=== PATIENT | male | born 1940 | race Caucasian/White ===

== ENCOUNTER 2018-09-14 11:55 | Day surgery (SDC) | payer BC, MEDICARE, OTHER ==
[2018-09-13 18:36] VITALS: Ht 134.6 cm; Wt 50.9 kg
[~2018-09-14] VITALS: Ht 134.6 cm; Wt 50.9 kg
[2018-09-14] VITALS (9 sets, daily range): BP systolic 96–118; BP diastolic 51–64; PULSE 96–106; RESP 22–29
[2018-09-14] MEDS ORDERED: MYCO200S GTB (13:35)
[2018-09-14] MEDS ORDERED: FLUO30CR TP (13:37)
[2018-09-14] MEDS ORDERED: ACET325S GTB (13:38)
[2018-09-14] MEDS ORDERED: ACET100V3 INHALATION (13:41)
[2018-09-14] MEDS ORDERED: IPRA3AMP29 INHALATION (13:42)
[2018-09-14] MEDS ORDERED: ATOV750L GTB (13:43)
[2018-09-14] MEDS ORDERED: BUSP5TAB2 GTB (13:44)
[2018-09-14] MEDS ORDERED: CHLO473M4 MM (13:45)
[2018-09-14] MEDS ORDERED: CACARBS GTB (13:47)
[2018-09-14] MEDS ORDERED: CHOL400T10 GTB (13:49)
[2018-09-14] MEDS ORDERED: CHLO25TA2 GTB (13:49)
[2018-09-14] MEDS ORDERED: QUESTRAN GTB (13:52)
[2018-09-14] MEDS ORDERED: GLUC1VIA6 IJ (14:01)
[2018-09-14] MEDS ORDERED: GUAI-173 GTB (14:06)
[2018-09-14] MEDS ORDERED: HEPA500021 IJ (14:07)
[2018-09-14] MEDS ORDERED: MELA5TAB4 GTB (14:07)
[2018-09-14] MEDS ORDERED: LEVO175T6 GTB (14:08)
[2018-09-14] MEDS ORDERED: LANT3I SC (14:09)
[2018-09-14] MEDS ORDERED: NOVO3I SC (14:14)
[2018-09-14] MEDS ORDERED: MICO57CR2 TP (14:16)
[2018-09-14] MEDS ORDERED: NYST1000 GTB (14:17)
[2018-09-14] MEDS ORDERED: VALC450 GTB (14:21)
[2018-09-14] MEDS ORDERED: PRED10TA GTB (14:24)
[2018-09-14] MEDS ORDERED: TACR1CAP GTB (14:27)
[2018-09-14] MEDS ORDERED: TOBR300A5 INHALATION (14:28)
--- NOTE | 2018-09-14 16:19 | PREAC ---
Date/Time of Note Date/Time of Note DATE: 09/14/18 TIME: 16:17 Anesthesia Eval and Record Evaluation Time Pre-Procedure Interview DATE: 09/14/18 TIME: 16:17 Age 77 Sex male NPO: 8 hrs Preoperative diagnosis DYSPHAGIA, Planned procedure EGD WITH GASTROSTOMY TUBE INSERTION Past Medical History Past Medical History: Includes Cardio: HTN Endo: Diabetes Pulm: Other (PULMONARY FIBROSIS, RT LUNG TRANSPLANT, VENT DEPENDENT) Heme: Anemia Psych: Depression Surgery & Anesthesia Issues No known issue Meds Anticoagulation: No Beta Flo within 24 hr: No Reason Beta Flo not given: Pt. not on B-Flo Reported Medications Tobramycin Neb* (Tobramycin Neb*) 300 Mg/5 Ml Ampul.neb, 80 MG INHALATION Q8H, #60 AMP 09/14/18 Tacrolimus* (Tacrolimus*) 1 Mg Capsule, 2 MG GTB Q12 PRN for QAM, CAP 09/14/18 Prednisone* (Prednisone*) 10 Mg Tab, 10 MG GTB DAILY, TAB 09/14/18 valGANciclovir* (Valcyte*) 450 Mg Tablet, 900 MG GTB Q2D, TAB Q 9AM 09/14/18 Nystatin (Nystatin) 100,000 Unit/1 Ml Oral.susp, 5 ML GTB Q6H, #60 ML 09/14/18 Miconazole Nitrate (Melissa Antifungal) 57 Gm Cream.gm., 57 GM TP NEEDED, TUB 09/14/18 Insulin Aspart* (Novolog Insulin Pen*) 100 Unit/Ml Soln, 0 SC .SLIDING SCALE AC, EA IF BS 71-130=0 UNIT,131-150=1 UNIT,151-200=2 UNITS,201-250=4 UNITS,251-300=6 UNITS,301-350=8 UNITS,351-400=10 UNITS ABOVE 400=12 UNITS AND CALL MD. 09/14/18 Insulin Glargine* (Lantus*) 100 Unit/Ml Soln, 7 UNIT SC BID, #1 VIAL 09/14/18 Levothyroxine Sodium* (Levothyroxine Sodium*) 175 Mcg Tablet, 175 MCG GTB BEFORE BREAKFAST, #30 TAB 09/14/18 Melatonin (Melatonin) 5 Mg Tablet, 5 MG GTB HS, TAB 09/14/18 Heparin Sodium,Porcine/Pf (HEPARIN SOD 5,000 UNIT/ 0.5 ML) 5,000 Unit/0.5 Ml Vial, 5000 UNIT IJ Q8H, VIAL 09/14/18 Guaifenesin* (Tussin*) 100 Mg/5 Ml Syrup, 15 ML GTB Q6 PRN for COUGH, ML 09/14/18 Glucagon HCl (Glucagon HCl) 1 Mg Vial, 1 MG IJ NEEDED, VIAL FOR BLOOD GLUCOSE BELOW 70 09/14/18 Cholestyramine* (Questran*) 1 Pkt Susp, 4 GM GTB Q 11AM, PACKET DO NOT GIVE WITHIN 2HRS OF OTHER MEDS 09/14/18 Cholecalciferol* (Vitamin D*) 400 Unit Tablet, 400 UNIT GTB DAILY, TAB 09/14/18 Chlorthalidone* (Chlorthalidone*) 25 Mg Tablet, 50 MG GTB BID, TAB 09/14/18 Calcium Carbonate (Ca Carbonate Susp (PEDIATRIC)) 250 Mg/Ml Susp, 1250 MG GTB DAILY for 30 Days, BOTTLE 09/14/18 Chlorhexidine Gluconate (Peridex) 473 Ml Mouthwash, 15 ML MM Q12H, BOTTLE 09/14/18 Buspirone Hcl* (Buspirone Hcl*) 5 Mg Tab, 5 MG GTB BID, TAB 09/14/18 Atovaquone* (Mepron*) 750 Mg/5 Ml Oral.susp, 1500 MG GTB DAILY 09/14/18 Ipratropium-Albuterol (Ipratropium-Albuterol) 0.5-3 Mg/3 Ml Ampul.neb, 3 ML I NHALATION QID, #30 VIAL 09/14/18 Acetylcysteine (Acetylcysteine) 100 Mg/1 Ml Vial, 2 ML INHALATION QID, VIAL 09/14/18 Acetaminophen* (Acetaminophen* Susp) 325 Mg/10.15 Ml Solution, 20.3 ML GTB Q6H PRN for NEEDED, ML 09/14/18 Fluorouracil (Fluorouracil) 30 Gm Cream..g., 30 GM TP BID 09/14/18 Mycophenolate Mofetil* (Cellcept*) 200 Mg/Ml Susp.recon, 1.25 ML GTB DAILY, ML 09/14/18 Meds reviewed: Yes Allergies Coded Allergies: magnesium sulfate (Unverified Allergy, Unknown, 09/14/18) olanzapine (Verified Allergy, Unknown, 09/14/18) Allergies Reviewed: Yes Labs/Studies Labs Reviewed: Reviewed by anesthesiologist test: N/A Pre-procedure Exam Airway: Adequate mouth opening, Adequate thyromental dist Mallampati: Mallampati III Teeth: Normal Lung: Normal Heart: Normal ASA Physical Status ASA physical status: 3 Emergency: None Planned Anesthetic General/MAC: ETT Planned Pain Management Parenteral pain med Pre-operative Attestations Prior to commencing anesthesia and surgery, the patient was re-evaluated, there was verification of: *The patient's identity *The results of appropriate recent lab work and preoperative vital signs *The above evaluation not changing prior to induction *Anesthetic plan, risk benefits, alternative and complications discussed with patient/family; questions answered; patient/family understands, accepts and wishes to proceed. CORY ANDRES September 14, 2018 16:19
--- NOTE | 2018-09-14 17:48 | HPN ---
Date/Time of Note Date/Time of Note DATE: 09/14/18 TIME: 17:48 Interval H&P Admission Note Pt. seen H&P reviewed: No system changes KENY SORIA MD September 14, 2018 17:48
--- NOTE | 2018-09-14 18:06 | PAC ---
Date/Time of Note Date/Time of Note DATE: 09/14/18 TIME: 18:06 Post-Anesthesia Notes Post-Anesthesia Note Last documented vital signs TEMP 98.1 BP 110/71 o2 SAT 99% P 104 Activity: WNL Respiratory function: WNL Cardiovascular function: WNL Mental status: Baseline Pain reasonably controlled: Yes Hydration appropriate: Yes Nausea/Vomiting absent: Yes CORY ANDRES September 14, 2018 18:06
[2018-09-14] MEDS ORDERED: ALBUTEROL 0.083% (NEB) 2.5 MG/3 ML AMP HHN PRN (18:30)
[2018-09-14] MEDS ORDERED: hydrALAzine 20 MG INJ IV PRN (18:30)
[2018-09-14] MEDS ORDERED: MIDAZOLAM 1 MG/ML 2 ML INJ IV PRN (18:30)
[2018-09-14] MEDS ORDERED: DIPHENHYDRAMINE 50 MG INJ IV PRN (18:30)
[2018-09-14] MEDS ORDERED: FENTAnyl 50 MCG/ML VIAL IV PRN ×2 (18:30)
[2018-09-14] MEDS ORDERED: EPHEDrine 25 MG/5 ML SYG IV PRN (18:30)
[2018-09-14] MEDS ORDERED: LABETALOL HCL 20MG INJ IV PRN (18:30)
--- NOTE | 2018-09-15 03:34 | GILP ---
DATE OF PROCEDURE: 09/14/2018 PROCEDURE PERFORMED: Removal of the old G-tube and placement of new G-tube and then J-tube load out supervisor through the same gastrocutaneous fistula. INDICATION: The patient is a 77-year-old male who had a GJ tube which was clogged. The G-tube, prob ably was not in the jejunum. It was in the stomach since the residual was very high each time when w e measured it. Besides, the patient had a coffee-ground colored emesis through the G-tube, so the pu rpose is to evaluate the upper GI tract, find the source of bleeding and also place the new GJ tube. The risk of the procedure, related and unrelated complications, anesthetic risks, alternatives were discussed. Informed consent was obtained. DESCRIPTION OF PROCEDURE: The patient was brought to OR room #[address] Rain. After optimal sedation, scope was passed with much ease into esophagus and advanced further down into stomach. The esophageal mucosa revealed erosive esophagitis with superficial ulceration and also there was retrog rade flow of gastric content all the way into the mid portion of the esophagus to the proximal part o f the esophagus. The G-tube was identified through the external opening of . Guidewire was pas sed through the G-tube. Guidewire was snared and transendoscopically passed the snare and the G-tube of 20-[place] loop was attached to the tip of the wire and the whole procedure was completed by mary Jason technique. The old G-tube was removed and the new G-tube of 24-[place] successfully was po sitioned. External bumper was secured. The G-tube load out supervisor of 12-[place] was passed through the G-tu be. The loop of the load out supervisor was grasped with a rat tooth forceps and taken down all the way beyond the third part of the jejunum and finally with rat tooth forceps, the coil in the stomach was reduced to minimal. The entire J-tube load out supervisor was pushed into the proximal jejunum and the scope was remov ed with excellent patient tolerance. IMPRESSION: 1. Old G-tube was removed. 2. A 24-[place] G-tube successfully. 3. J-tube extended 12 [place] was passed through the G-tube and advanced all the way into the proxima l jejunum. PLAN: To continue Reglan. Resume feeding through the G-tube. Dictated By: KENY ACHARYA/LIAT Conf#: [id number] DID#: [id number] CC: BRANDON SÁNCHEZ DO;*EndCC*
== END 2018-09-14 18:40 | disposition other institution (70) ==
LOC: GIL 11:55 → SDS 11:55 → GIL 18:40
PROVIDERS: ATTEND Internal Medicine Gastroenterology
DX: K94.23 Gastrostomy malfunction (principal); Y84.8 Other medical procedures as the cause of abnormal reaction of the patient, or of later complication, without mention of misadventure at the time of the procedure; Y82.8 Other medical devices associated with adverse incidents; I10 Essential (primary) hypertension; E11.9 Type 2 diabetes mellitus without complications; Z79.4 Long term (current) use of insulin
CPT/HCPCS: 49446; 94002; J2250